=== PATIENT | female | born 1940 | race Caucasian/White ===

== ENCOUNTER 2018-01-20 01:20 | Observation (INO) | payer MEDICARE ==
[2018-01-20] VITALS (7 sets, daily range): BP systolic 101–200; BP diastolic 58–89; PULSE 75–97; RESP 15–16; TEMP 97.6–98.6; O2SAT 97–100
[2018-01-20] MEDS ORDERED: KELP1TAB PO (01:59)
[2018-01-20] MEDS ORDERED: LISI-515 PO (01:59)
[2018-01-20] MEDS ORDERED: CITRTAB7 PO (01:59)
[2018-01-20] MEDS ORDERED: HYDR25TA5 PO (01:59)
[2018-01-20] MEDS ORDERED: SIMV20TA PO (01:59)
[2018-01-20] MEDS ORDERED: CENTCHW4 CHEW (01:59)
[2018-01-20] MEDS ORDERED: SYNT25TA PO (01:59)
[2018-01-20] MEDS ORDERED: NITROGLYCERIN 2% OINT 1 GM PACKET TOP ONE (02:15)
[2018-01-20] MEDS ORDERED: SODIUM CHLORIDE 0.9% FLUSH 10 ML FLUSH IVF PRN (02:15)
[2018-01-20] MEDS ORDERED: LABETALOL HCL 100 MG/20 ML VIAL IV PUSH ONE (02:15)
[2018-01-20] MEDS ORDERED: ASPIRIN 325 MG TAB PO ONE (02:15)
[2018-01-20 02:32] LABS: AUTOMATED NEUTROPHIL # 4.4 TH/MM3 (1.8-7.7); BASOPHIL % 0.6 % (0.0-2.0); EOSINOPHIL # 0.3 TH/MM3 (0-0.4); EOSINOPHIL % 3.3 % (0.0-4.0); HEMATOCRIT 34.4 % (35.0-46.0); LYMPH % 33.6 % (9.0-44.0); LYMPHOCYTE # 2.7 TH/MM3 (1.0-4.8); MEAN CELL VOLUME 89.1 FL (80.0-100.0); MEAN CORPUSCULAR HGB CONC 34.8 % (32.0-36.0); MONO % 6.4 % (0.0-8.0); MONOCYTE # 0.5 TH/MM3 (0-0.9); NEUT % 56.1 % (16.0-70.0); PLATELET COUNT 206 TH/MM3 (150-450); RED BLOOD COUNT 3.86 MIL/MM3 (4.00-5.30); RED CELL DISTRIBUTION WIDTH 13.7 % (11.6-17.2); WHITE BLOOD COUNT 7.9 TH/MM3 (4.0-11.0)
[2018-01-20 02:39] LABS: PROTHROMBIN TIME - PATIENT 9.8 SEC (9.8-11.6)
[2018-01-20 02:40] LABS: D-DIMER 0.3 MG/L FEU (0.00-0.50)
[2018-01-20 02:43] LABS: ALBUMIN 4.4 GM/DL (3.4-5.0); ALT (GPT) 25 U/L (10-53); AST (GOT) 31 U/L (15-37); BICARBONATE 25.3 MEQ/L (21.0-32.0); BLOOD UREA NITROGEN 11 MG/DL (7-18); CALCIUM 8.8 MG/DL (8.5-10.1); CHLORIDE 98 MEQ/L (98-107); CREATININE 0.88 MG/DL (0.50-1.00); GLOMERULAR FILTRATION RATE 62 ML/MIN (>89); GLUCOSE,RANDOM 92 MG/DL (74-106); MAGNESIUM 2.1 MG/DL (1.5-2.5); SODIUM (NA) 133 MEQ/L (136-145)
[2018-01-20 02:47] LABS: ALKALINE PHOSPHATASE 61 U/L (45-117); TOTAL BILIRUBIN ADULT 0.5 MG/DL (0.2-1.0); TOTAL PROTEIN 7.8 GM/DL (6.4-8.2); TROPONIN I 0.04 NG/ML (0.02-0.05)
--- NOTE | 2018-01-20 02:51 | RADRPT ---
EXAM DATE/TIME: 01/20/2018 02:18 [facility] COMPARISON: No previous studies available for comparison. INDICATIONS : Short of breath, chest discomfort. MEDICAL HISTORY : None. SURGICAL HISTORY : None. ENCOUNTER: Initial ACUITY: 1 day PAIN SCORE: 3/10 LOCATION: Bilateral chest FINDINGS: A single view of the chest demonstrates the lungs to be symmetrically aerated without evidence of mas s, infiltrate or effusion. The cardiomediastinal contours are unremarkable. Osseous structures are intact. CONCLUSION: 1. No acute cardiopulmonary disease. José Luis Garg MD on January 20, 2018 at 2:50 Board Certified Radiologist. This report was verified electronically.
--- NOTE | 2018-01-20 05:31 | PD ---
HPI . Chest pain Chief Complaint: Chest Pain Time Seen by Provider: 01:52 Travel History International Travel<30 days: No Contact w/Intl Traveler<30days: No Traveled to known affect area: No History of Present Illness HPI 77-year-old female with a known cardiac history and history of hypertension, presents with mild substernal chest pain is dull in nature and nonradiating lasting for several hours, was noted to be markedly hypertensive at home. Patient denies any shortness of breath, diaphoresis, nausea. Has no recent leg swelling or leg pain, and no significant recent change in exercise tolerance. Patient states she does get chest pain several times a year, but this episode feels different and that it was more severe and slightly different in nature being more dull. [facility] Past Medical History Narrative Medical Past medical history reviewed Chest Pain: Yes Diminished Hearing: No Hypertension: Yes Medical other: Yes (sciatica) Thyroid Disease: Yes (hyper) Social History Alcohol Use: No Tobacco Use: No Substance Use: No Allergies-Medications (Allergen,Severity, Reaction): Uncoded Allergies: PTU HYPERTHYROID MEDICATION (Allergy, Unknown, 01/20/18) Reported Meds & Prescriptions Reported Meds & Active Scripts Active Reported Kelp 1 Each Tablet 325 Mg PO Synthroid (Levothyroxine Sodium) 25 Mcg Tab 25 Mcg PO DAILY Centrum (Multiple Vitamins W/ Minerals) 1 Chew 1 Tab CHEW DAILY Citracal + D3 Maximum (Calcium Citrate-Vitamin D) 315-250 Mg-Unit Tab 1 Tab PO BID Simvastatin 20 Mg Tab 20 Mg PO DAILY Hydrochlorothiazide 25 Mg Tab 25 Mg PO DAILY Lisinopril 20 Mg Tab 20 Mg PO DAILY Narrative Medication Allergies and medications reviewed Review of Systems Except as stated in HPI: all other systems reviewed are Neg General / Constitutional: No: Fever Eyes: No: Visual changes HENT: No: Headaches Cardiovascular: Positive: Chest Pain or Discomfort, No: Palpitations, Irregular Rhythm, Syncope, Dyspnea on exertion, Edema Respiratory: No: Cough, Shortness of Breath, Orthopnea, Hemoptysis, Stridor, Night Sweats, Pleuritic Pain Gastrointestinal: No: Abdominal Pain Genitourinary: No: Dysuria Musculoskeletal: No: Pain Skin: No Rash Neurologic: No: Weakness Psychiatric: No: Depression Endocrine: No: Polydipsia Hematologic/Lymphatic: No: Easy Bruising Physical Exam Narrative GENERAL: Awake alert, oriented 3, no acute distress. Vital signs afebrile, markedly hypertensive at 203/105 SKIN: Warm and dry. Color is slightly pale, slightly ill-appearing. HEAD: Atraumatic. Normocephalic. EYES: Pupils equal and round. No scleral icterus. No injection or drainage. ENT: No nasal bleeding or discharge. Mucous membranes pink and moist. NECK: Trachea midline. No JVD. Supple full range of motion CARDIOVASCULAR: Regular rate and rhythm. S1-S2 slightly bounding heart sounds, no murmurs rubs or gallops RESPIRATORY: No accessory muscle use. Clear to auscultation. Breath sounds equal bilaterally. GASTROINTESTINAL: Abdomen soft, non-tender, nondistended. Hepatic and splenic margins not palpable. MUSCULOSKELETAL: Extremities without clubbing, cyanosis, or edema. No obvious deformities. NEUROLOGICAL: Awake and alert. No obvious cranial nerve deficits. Motor grossly within normal limits. Five out of 5 muscle strength in the arms and legs. Normal speech. PSYCHIATRIC: Appropriate mood and affect; insight and judgment normal. Data Data Last Documented VS Vital Signs Date Time Temp Pulse Resp B/P (MAP) Pulse Ox O2 Delivery O2 Flow Rate FiO2 01/20/18 03:30 86 16 112/68 (83) 98 Room Air 01/20/18 01:35 97.6 Orders Orders Electrocardiogram (01/20/18 ) Electrocardiogram (01/20/18 02:02) B-Type Natriuretic Peptide (01/20/18 02:02) Ckmb (Isoenzyme) Profile (01/20/18 02:02) Complete Blood Count With Diff (01/20/18 02:02) Comprehensive Metabolic Panel (01/20/18 02:02) D-Dimer (01/20/18 02:02) Magnesium (Mg) (01/20/18 02:02) Prothrombin Time / Inr (Pt) (01/20/18 02:02) Act Partial Throm Time (Ptt) (01/20/18 02:02) Troponin I (01/20/18 02:02) Chest, Single Ap (01/20/18 02:02) Ecg Monitoring (01/20/18 02:02) Bilateral Bp Monitoring (01/20/18 02:02) Iv Access Insert/Monitor (01/20/18 02:02) Oximetry (01/20/18 02:02) Oxygen Administration (01/20/18 02:02) Aspirin (Aspirin) (01/20/18 02:15) Nitroglycerin 2% Oint (Nitroglycerin 2% (01/20/18 02:15) Sodium Chloride 0.9% Flush (Ns Flush) (01/20/18 02:15) Labetalol Inj (Trandate Inj) (01/20/18 02:15) CKMB (01/20/18 02:07) CKMB% (01/20/18 02:07) Troponin I (01/20/18 04:18) Electrocardiogram (01/20/18 ) Labs Laboratory Tests Test 01/20/18 02:07 01/20/18 05:00 White Blood Count 7.9 TH/MM3 Red Blood Count 3.86 MIL/MM3 Hemoglobin 12.0 GM/DL Hematocrit 34.4 % Mean Corpuscular Volume 89.1 FL Mean Corpuscular Hemoglobin 31.0 PG Mean Corpuscular Hemoglobin Concent 34.8 % Red Cell Distribution Width 13.7 % Platelet Count 206 TH/MM3 Mean Platelet Volume 8.0 FL Neutrophils (%) (Auto) 56.1 % Lymphocytes (%) (Auto) 33.6 % Monocytes (%) (Auto) 6.4 % Eosinophils (%) (Auto) 3.3 % Basophils (%) (Auto) 0.6 % Neutrophils # (Auto) 4.4 TH/MM3 Lymphocytes # (Auto) 2.7 TH/MM3 Monocytes # (Auto) 0.5 TH/MM3 Eosinophils # (Auto) 0.3 TH/MM3 Basophils # (Auto) 0.0 TH/MM3 CBC Comment DIFF FINAL Differential Comment Prothrombin Time 9.8 SEC Prothromb Time International Ratio 1.0 RATIO Activated Partial Thromboplast Time 25.4 SEC D-Dimer Quantitative (PE/DVT) 0.30 MG/L FEU Blood Urea Nitrogen 11 MG/DL Creatinine 0.88 MG/DL Random Glucose 92 MG/DL Total Protein 7.8 GM/DL Albumin 4.4 GM/DL Calcium Level 8.8 MG/DL Magnesium Level 2.1 MG/DL Alkaline Phosphatase 61 U/L Aspartate Amino Transf (AST/SGOT) 31 U/L Alanine Aminotransferase (ALT/SGPT) 25 U/L Total Bilirubin 0.5 MG/DL Sodium Level 133 MEQ/L Potassium Level 3.4 MEQ/L Chloride Level 98 MEQ/L Carbon Dioxide Level 25.3 MEQ/L Anion Gap 10 MEQ/L Estimat Glomerular Filtration Rate 62 ML/MIN Total Creatine Kinase 253 U/L Creatine Kinase MB 2.4 NG/ML Creatine Kinase MB % 0.9 % Troponin I 0.04 NG/ML B-Type Natriuretic Peptide 60 PG/ML MDM Medical Decision Making Medical Screen Exam Complete: Yes Emergency Medical Condition: Yes Medical Record Reviewed: Yes Differential Diagnosis Chest pain, hypertensive urgency, pulmonary embolus, Narrative Course Patient treated presentation for her marked hypertension with IV antihypertensives as well as Nitropaste to chest wall. Patient had complete relief of her symptomatology as well as resolution of her blood pressure. EKG #1 normal sinus rhythm at 80 bpm, nonischemic, intervals normal. Laboratory examination reviewed, patient has no significant abnormalities. Troponin normal, d-dimer 0.3 within normal limits, Repeat EKG normal sinus rhythm at 70 bpm, nonischemic, intervals normal Patient to be admitted to chest pain center for observation Diagnosis Primary Impression: Chest pain Qualified Codes: R07.2 - Precordial pain Additional Impression: Hypertensive urgency Admitting Information Admitting Physician Requests: Observation Camden Santiago MD Jan 20, 2018 05:31
[2018-01-20] MEDS ORDERED: SODIUM CHLORIDE 0.9% FLUSH 10 ML FLUSH IV FLUSH PRN (05:45)
[2018-01-20] MEDS: NITROGLYCERIN 2% OINT 1 GM PACKET TOP SCH ×2 (06:00→12:00)
[2018-01-20] MEDS ORDERED: SODIUM CHLORIDE 0.9% FLUSH 10 ML FLUSH IV FLUSH SCH (09:00)
--- NOTE | 2018-01-20 09:40 | HHI.HP ---
[facility] Primary Care Physician Saud Mayorga M.D. Chief Complaint Chest pain and high blood pressure History of Present Illness This is a 77-year-old female that presents to the ED with a complaint of chest pain and high blood pressure. Patient states that she developed a dull discomfort in the center of her chest that lasted several hours yesterday. Denied shortness of breath nausea or diaphoresis. Found nothing to worsen or improve her symptoms. She checked her blood pressure and it was in the 180s which concerned her. Denies history of CAD. States she gets a chest discomfort to 3 times a year but has a cardiac evaluation annually. States she follows Dr. wilkinson. Last stress test about a year and a half ago. States that her stress tests have been normal. Denies recent illness. Denies fevers or chills. Review of Systems General: Patient denies fevers, chills, and recent travel HEENT: Patient denies headache, sore throat, difficulty swallowing. Cardiovascular: Has the chest discomfort as mentioned above. Denies sensation of heart beating rapidly or irregularly. No syncope. Denies diaphoresis. Respiratory: Denies shortness of breath or inspirational chest discomfort. Denies coughing wheezing or hemoptysis. GI: Patient denies nausea, vomiting, diarrhea, abdominal pain, bloody stools. Musculoskeletal: Patient denies joint pain or edema. Denies calf pain or edema. Neurovascular: Patient denies numbness, tingling, weakness in extremities. Denies headache. Endocrine: Denies polyuria and polydipsia. Hematologic: Denies easy bruising. Skin: Denies rash or itching. Past Family Social History Allergies: Uncoded Allergies: PTU HYPERTHYROID MEDICATION (Allergy, Unknown, 01/20/18) Past Medical History Hypertension. Hyperlipidemia however she does not take medication stating and created myalgias. Also history of hyperthyroidism. Denies CAD and diabetes. Past Surgical History Noncontributory. Reported Medications Reported Meds & Active Scripts Active Reported Kelp 1 Each Tablet 325 Mg PO Synthroid (Levothyroxine Sodium) 25 Mcg Tab 25 Mcg PO DAILY Centrum (Multiple Vitamins W/ Minerals) 1 Chew 1 Tab CHEW DAILY Citracal + D3 Maximum (Calcium Citrate-Vitamin D) 315-250 Mg-Unit Tab 1 Tab PO BID Simvastatin 20 Mg Tab 20 Mg PO DAILY Hydrochlorothiazide 25 Mg Tab 25 Mg PO DAILY Lisinopril 20 Mg Tab 20 Mg PO DAILY Active Ordered Medications Current Medications Medications (Trade) Dose Ordered Sig/Yoni Route Start Time Stop Time Status Last Admin (NS Flush) 2 ml UNSCH PRN IVF 01/20/18 02:15 01/20/18 02:44 (NS Flush) 2 ml UNSCH PRN IV FLUSH 01/20/18 05:45 (NS Flush) 2 ml BID IV FLUSH 01/20/18 09:00 01/20/18 08:59 (Nitroglycerin 2% Oint) 1 inch Q6HR TOP 01/20/18 06:00 Family History Cannot recall cardiac history in her family. Social History Non-smoker. Denies alcohol or illicit drugs. Physical Exam Vital Signs Vital Signs Date Time Temp Pulse Resp B/P (MAP) Pulse Ox O2 Delivery O2 Flow Rate FiO2 01/20/18 08:02 97.9 76 16 101/58 (72) 98 01/20/18 06:11 98.6 75 15 107/58 (74) 98 01/20/18 05:39 98 01/20/18 03:30 86 16 112/68 (83) 98 Room Air 01/20/18 01:35 97.6 97 16 200/89 (126) 100 Physical Exam GENERAL: This is a well-nourished, well-developed patient, in no apparent distress. Patient speaks in clear complete sentences. Patient is pleasant. HEENT: Head is atraumatic and normocephalic. Neck is supple without lymphadenopathy and trachea is midline. No JVD or carotid bruits. CARDIOVASCULAR: Regular rate and rhythm without murmurs, gallops, or rubs. RESPIRATORY: Clear to auscultation. Breath sounds equal bilaterally. No wheezes , rales, or rhonchi. Chest wall is nontender. No use of accessory muscles. GASTROINTESTINAL: Abdomen is nontender, nondistended. Abdomen soft. No obvious pulsatile mass or bruit. No CVA tenderness. Strong femoral pulses bilaterally. Normal bowel sounds in all quadrants. MUSCULOSKELETAL: Patient is moving upper and lower extremities freely. No calf tenderness or edema, no Homans sign. Strong pulses in upper and lower extremities. NEUROLOGICAL: Patient is alert and oriented. Cranial nerves 2-12 are grossly intact. No focal deficits and speech is clear. SKIN: No rash and turgor is normal. Laboratory Laboratory Tests Test 01/20/18 02:07 01/20/18 05:00 White Blood Count 7.9 Red Blood Count 3.86 Hemoglobin 12.0 Hematocrit 34.4 Mean Corpuscular Volume 89.1 Mean Corpuscular Hemoglobin 31.0 Mean Corpuscular Hemoglobin Concent 34.8 Red Cell Distribution Width 13.7 Platelet Count 206 Mean Platelet Volume 8.0 Neutrophils (%) (Auto) 56.1 Lymphocytes (%) (Auto) 33.6 Monocytes (%) (Auto) 6.4 Eosinophils (%) (Auto) 3.3 Basophils (%) (Auto) 0.6 Neutrophils # (Auto) 4.4 Lymphocytes # (Auto) 2.7 Monocytes # (Auto) 0.5 Eosinophils # (Auto) 0.3 Basophils # (Auto) 0.0 CBC Comment DIFF FINAL Differential Comment Prothrombin Time 9.8 Prothromb Time International Ratio 1.0 Activated Partial Thromboplast Time 25.4 D-Dimer Quantitative (PE/DVT) 0.30 Blood Urea Nitrogen 11 Creatinine 0.88 Random Glucose 92 Total Protein 7.8 Albumin 4.4 Calcium Level 8.8 Magnesium Level 2.1 Alkaline Phosphatase 61 Aspartate Amino Transf (AST/SGOT) 31 Alanine Aminotransferase (ALT/SGPT) 25 Total Bilirubin 0.5 Sodium Level 133 Potassium Level 3.4 Chloride Level 98 Carbon Dioxide Level 25.3 Anion Gap 10 Estimat Glomerular Filtration Rate 62 Total Creatine Kinase 253 196 Creatine Kinase MB 2.4 1.8 Creatine Kinase MB % 0.9 0.9 Troponin I 0.04 0.04 B-Type Natriuretic Peptide 60 Result Diagram: 01/20/1820601/20/18206 Imaging Last 48 hours Impressions Chest X-Ray 01/20/18201 Signed Impressions: Service Date/Time: Saturday, January 20, 2018 02:18 - CONCLUSION: 1. No acute cardiopulmonary disease. José Luis Garg MD Course EKGs are sinus rhythm without significant ST segment depressions or elevations. Caprini VTE Risk Assessment Caprini VTE Risk Assessment: Mod/High Risk (score >= 2) Caprini Risk Assessment Model Point Value = 1 Point Value = 2 Point Value = 3 Point Value = 5 Age 41-60 Minor surgery BMI > 25 kg/m2 Swollen legs Varicose veins or History of unexplained or recurrent spontaneous Oral contraceptives or hormone replacement Sepsis (< 1 month) Serious lung disease, including pneumonia (< 1 month) Abnormal pulmonary function Acute myocardial infarction Congestive heart failure (< 1 month) History of inflammatory bowel disease Medical patient at bed rest Age 61-74 Arthroscopic surgery Major open surgery (> 45 min) Laparoscopic surgery (> 45 min) Malignancy Confined to bed (> 72 hours) Immobilizing plaster cast Central venous access Age >= 75 History of VTE Family history of VTE Factor V Leiden Prothrombin [id number] Lupus anticoagulant Anticardiolipin antibodies Elevated serum homocysteine Heparin-induced thrombocytopenia Other congenital or acquired thrombophilia Stroke (< 1 month) Elective arthroplasty Hip, pelvis, or leg fracture Acute spinal cord injury (< 1 month) Prophylaxis Regimen Total Risk Factor Score Risk Level Prophylaxis Regimen 0-1 Low Early ambulation 2 Moderate Order ONE of the following: *Sequential Compression Device (SCD) *Heparin 5000 units SQ BID 3-4 Higher Order ONE of the following medications: *Heparin 5000 units SQ TID *Enoxaparin/Lovenox 40 mg SQ daily (WT < 150 kg, CrCl > 30 mL/min) *Enoxaparin/Lovenox 30 mg SQ daily (WT < 150 kg, CrCl > 10-29 mL/min) *Enoxaparin/Lovenox 30 mg SQ BID (WT < 150 kg, CrCl > 30 mL/min) AND/OR *Sequential Compression Device (SCD) 5 or more Highest Order ONE of the following medications: *Heparin 5000 units SQ TID (Preferred with Epidurals) *Enoxaparin/Lovenox 40 mg SQ daily (WT < 150 kg, CrCl > 30 mL/min) *Enoxaparin/Lovenox 30 mg SQ daily (WT < 150 kg, CrCl > 10-29 mL/min) *Enoxaparin/Lovenox 30 mg SQ BID (WT < 150 kg, CrCl > 30 mL/min) AND *Sequential Compression Device (SCD) Assessment and Plan Assessment and Plan * Chest pain: Patient has had first 2 sets of cardiac enzymes and EKGs for ruling out purposes. She was seen by Dr. Yuniel Friend of cardiology in the chest pain center and will undergo a Lexiscan. She will be discharged home if her stress test is nonischemic with instructions to follow-up with PCP as well as her position classifier. Return to ED for interval issues. * Hypertension: We will continue to monitor. She was hypertensive upon arrival in the ED but blood pressures have normalized. She was given 5 mg of IV labetalol in the ED a few hours prior. * Hyperlipidemia: Patient needs discussed this with her position classifier. Currently not taking statin therapy secondary to myalgias. * Hyperthyroidism: Continue her medications. Patient is stable at this time. She is agreeable to this plan. Ronald Marrero Jan 20, 2018 09:40
[2018-01-20 10:55] LABS: TROPONIN I 0.05 NG/ML (0.02-0.05)
[2018-01-20] MEDS ORDERED: REGADENOSON INJ 0.4 MG/5 ML SYR ONE (12:56)
--- NOTE | 2018-01-20 14:23 | RADRPT ---
EXAM DATE/TIME: 01/20/2018 12:21 [facility] COMPARISON: No previous studies available for comparison. INDICATIONS : Chest pain. Angina. DOSE: 25.4 mCi Tc99m Myoview at stress. 8.5 mCi Tc99m Myoview at rest. 0.4 mg Lexiscan STRESS SYMPTOMS: Shortness of breath. EJECTION FRACTION: > 70% MEDICAL HISTORY : Hypertension. Hyperthyroidism. SURGICAL HISTORY : None. ENCOUNTER: Initial ACUITY: 1 day PAIN SCALE: 0/10 LOCATION: Bilateral chest TECHNIQUE: The patient underwent pharmacologic stress with infusion of prescribed dose. Continuous ECG tracing was monitored during stress. Gated SPECT imaging was performed after stress and conventional SPECT i maging was performed at rest. The examination was performed on a SPECT/CT scanner, both attenuation and non-corrected datasets were reviewed. FINDINGS: DISTRIBUTION: The maximum perfused segment at stress is in the lateral wall. PERFUSION STUDY: The pattern of perfusion at stress is within normal limits. GATED STUDY: There is intact wall motion and thickening without hypokinetic or dyskinetic segments. CONCLUSION: Normal examination. RISK CATEGORY: Low (<1% Annual Mortality Rate) Derrick Brizuela MD on January 20, 2018 at 14:20 Board Certified Radiologist. This report was verified electronically.
--- NOTE | 2018-01-20 14:43 | HHI.DCPOC ---
Discharge Care Plan Diagnosis: (1) Chest pain (2) Hypertension (3) Hyperlipidemia Goals to Promote Your Health DISCUSS TAKING CHOLESTEROL MEDICATIONS WITH YOUR PRIMARY CARE PHYSICIAN. * To prevent worsening of your condition and complications * To maintain your health at the optimal level Directions to Meet Your Goals Take your medications as prescribed Follow your dietary instruction Follow activity as directed Keep your appointments as scheduled Take your immunizations and boosters as scheduled If your symptoms worsen call your PCP, if no PCP go to Urgent Care Center or Emergency Room Smoking is Dangerous to Your Health. Avoid second hand smoke Call the 24-hour hour crisis hotline for domestic abuse at Ronald Marrero Jan 20, 2018 14:43
--- NOTE | 2018-01-20 16:01 | EKG ---
Date Performed: 01/20/2018 Time Performed: 04:59:37 PTAGE: 77 years EKG: Sinus rhythm NORMAL ECG PREVIOUS TRACING : 01/20/2018 01.53 Since previous tracing, no significant change noted DOCTOR: Yuniel Friend Interpretating Date/Time 01/20/2018 16:00:47
--- NOTE | 2018-01-20 16:01 | EKG ---
Date Performed: 01/20/2018 Time Performed: 01:53:34 PTAGE: 77 years EKG: Sinus rhythm POSSIBLE LEFT ATRIAL ENLARGEMENT BORDERLINE ECG NO PREVIOUS TRACING DOCTOR: Yuniel Friend Interpretating Date/Time 01/20/2018 16:01:00
--- NOTE | 2018-01-20 16:06 | TR ---
Date Performed: 01/20/2018 Time Performed: 12:55:35 DOCTOR: Yuniel Friend DRUG LIST: CLINICAL HISTORY: ANGINA REASON FOR TEST: Angina REASON FOR ENDING: OBSERVATION: CONCLUSION: Lexiscan stress test was performed under standard four minute protocol. Radionuclid e was injected one minute prior to ending the test. No electrocardiographic abormalities were present to suggest ischemia. Nuclear imaging and interpretation are pending. COMMENTS:
== END 2018-01-20 16:43 | disposition home or self-care (01) ==
LOC: NEPE 01:20 → NEDA 05:34 → NEPGCP 06:09
PROVIDERS: ADMIT Internal Medicine Interventional Cardiology; ATTEND Internal Medicine Interventional Cardiology
DX: R07.2 Precordial pain (principal); R06.02 Shortness of breath; I16.0 Hypertensive urgency; I10 Essential (primary) hypertension; I20.9 Angina pectoris, unspecified; E78.5 Hyperlipidemia, unspecified; E05.90 Thyrotoxicosis, unspecified without thyrotoxic crisis or storm; M54.30 Sciatica, unspecified side; Z79.899 Other long term (current) drug therapy
CPT/HCPCS: 71045; 78452; 80053; 82550; 82552; 83735; 83880; 84484; 85025; 85379; 85610; 85730; 93005; 93017; 99285; A9502; G0378; J2785